=== PATIENT | female | born 1950 | race Caucasian/White ===

== ENCOUNTER → 2020-07-05 | Day surgery (SDC) | payer MEDICARE ==
[2020-06-30 15:09] LABS: BASOPHILS % 0.5 % (0.0-1.0); EOSINOPHILS # (AUTO) 0.3 (0.0-0.4); EOSINOPHILS % 4.1 % (0.0-6.0); HEMATOCRIT 38.2 % (34.2-44.1); HEMOGLOBIN 12.1 g/dL (12.0-16.0); LYMPHOCYTES # (AUTO) 1.6 (1.0-3.2); LYMPHOCYTES % 22.2 % (18.0-39.1); MEAN CORPUSCULAR HEMOGLOBIN 27.6 pg (28-32); MEAN CORPUSCULAR HGB CONC 31.7 g/dL (31-35); MEAN CORPUSCULAR VOLUME 87.2 fL (81-99); MONOCYTES # (AUTO) 0.8 (0.2-0.8); MONOCYTES % 10.2 % (4.4-11.3); NEUTROPHILS # (AUTO) 4.6 (2.1-6.9); NEUTROPHILS % 62.6 % (38.7-80.0); PLATELET COUNT 208 x10e3/uL (140-360); RED BLOOD COUNT 4.38 x10e6/uL (3.6-5.1); RED CELL DISTRIBUTION WIDTH 13.2 % (11.7-14.4)
[~2020-07-05] MED LIST: CALTRATE 600 +1 EAC1 PO; CENTRUM SILVER1 EAC3 PO; FENTANYL CITRATE/PF 100MCG/2 ML INJ ONE; HAIR, SKIN & N1 EACH PO; HYOSCYAMINE 0.125 MG TAB ONE; LEXAPRO20 MG PO; LIDOCAINE HCL 2% LOCAL INJ 5 ML SDV VIAL INJ ONE; MIDAZOLAM HCL 2 MG/2 ML VIAL ONE; PROPOFOL IV EMULSION 10 MG/ML 20 ML VIAL ONE; VITAMIN D3125 MCG PO
[2020-07-05 15:05] VITALS: BP 126/85
--- NOTE | 2020-07-05 17:47 | Operative Report ---
DATE OF PROCEDURE: 07/05/2020 SURGEON: Kel Byrne MD PROCEDURE: Colonoscopy with an EGD scope. INDICATIONS FOR COLONOSCOPY: Colorectal cancer screening. MEDICATIONS: The patient was done under MAC, please see anesthesiologist's note. PROCEDURE IN DETAIL: With the patient in the left lateral decubitus position, a flexible fiberoptic Olympus colonoscope was inserted into the rectum and advanced all the way to the distal sigmoid colon. It could not be advanced any further secondary to the distal sigmoid being sharply angulated and fixed. It was then withdrawn and an EGD scope was then introduced into the rectum and advanced traversing the sharply angulated area to approximately 100 cm from the anal verge. The scope was then withdrawn slowly and mucosa overlying the descending colon grossly appeared to be within normal limits. Diverticular disease was noted to involve the distal descending as well as the sigmoid colon. The rectum appeared to be within normal limits. The scope was then retroflexed into the distal rectum and small internal hemorrhoids were noted, none of which was actively bleeding. The scope was then straightened out, it was subsequently withdrawn, and the patient tolerated the procedure well. IMPRESSION: 1. Colonoscopy per EGD scope to 100 cm from the anal verge. 2. Diverticulosis. 3. Sharply angulated and fixed distal sigmoid colon could only be traversed with the EGD scope. 4. Internal hemorrhoids. PLAN: The patient will need an air-contrast barium enema to visualize rest of colon. Kel Byrne MD [facility] /[id number] cc: Dr. Adrian York
== END | disposition home or self-care (01) ==
LOC: OR 12:52
PROVIDERS: ATTEND Internal Medicine Gastroenterology
DX: Z12.11 Encounter for screening for malignant neoplasm of colon (principal); K57.30 Diverticulosis of large intestine without perforation or abscess without bleeding; K56.609 Unspecified intestinal obstruction, unspecified as to partial versus complete obstruction; K62.89 Other specified diseases of anus and rectum; K59.09 Other constipation; K64.8 Other hemorrhoids; E78.5 Hyperlipidemia, unspecified; F32.9 Major depressive disorder, single episode, unspecified; Z01.810 Encounter for preprocedural cardiovascular examination; Z01.812 Encounter for preprocedural laboratory examination; Z11.59 Encounter for screening for other viral diseases; Z68.38 Body mass index [BMI] 38.0-38.9, adult
CPT/HCPCS: 36415; 85025; 93005; G0121; J2001; J2250; J2704; J3010; U0002; 45378

== ENCOUNTER → 2020-08-03 | Outpatient (CLI) | payer MEDICARE ==
[~2020-08-03] MED LIST changes: -FENTANYL CITRATE/PF 100MCG/2 ML INJ ONE; -HYOSCYAMINE 0.125 MG TAB ONE; -LIDOCAINE HCL 2% LOCAL INJ 5 ML SDV VIAL INJ ONE; -MIDAZOLAM HCL 2 MG/2 ML VIAL ONE; -PROPOFOL IV EMULSION 10 MG/ML 20 ML VIAL ONE
== END ==
LOC: DX 08:25
PROVIDERS: ATTEND Internal Medicine Gastroenterology
DX: R93.3 Abnormal findings on diagnostic imaging of other parts of digestive tract (principal)
CPT/HCPCS: 74280